=== PATIENT | female | born 2005 | race Caucasian/White ===

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

== ENCOUNTER 2025-07-05 17:05 | Emergency (ER) | payer OTHER ==
[~2025-07-05] VITALS: Ht 152.4 cm; Wt 72.5 kg
[2025-07-05] MEDS ORDERED: CIPROFLOXACIN HCL/DEXAMETH 7.5 ML HOME.PACK OTIC ONE ×2 (19:00→19:15)
[2025-07-05 19:14] VITALS: BP 107/62
== END 2025-07-05 19:16 | disposition home or self-care (01) ==
LOC: ED 17:05
DX: H60.92 Unspecified otitis externa, left ear (principal); J06.9 Acute upper respiratory infection, unspecified; Z87.891 Personal history of nicotine dependence
CPT/HCPCS: 87651; 99283

== ENCOUNTER 2025-08-29 01:32 | Emergency (ER) | payer OTHER ==
[~2025-08-29] VITALS: Ht 177.8 cm; Wt 73.0 kg
--- OUTSIDE RECORDS SUMMARY | ~2025-08-29 | XMS | Continuity of Care Document ---
Demographics + + + | Address | [address] | | | [place] [address] | + + + | Preferred Language | Unknown | + + + | Marital Status | Never | + + + | Protestant Affiliation | Unknown | + + + | Race | White | + + + | Ethnic Group | Not or | + + + Author + + + | Author | [facility] | + + + | Organization | [facility] | + + + | Address | [address] | | | [place] [address] | + + + | Phone | | + + + Care Team Providers + + + + | Care Cytologist Name | Role | Phone | + + + + Unavailable | Unavailable | + + + + Unavailable | Unavailable | + + + + Allergies and Intolerances + + + + + + | date | description | facility | reaction | severity | + + + + + + | 2025-07-05 | UNK | [facility] - | (no reaction) | Moderate | | 00:00 | | [facility] | | | | | | [facility] | | | + + + + + + Encounters No information. Functional Status No information. Immunizations No information. Medications No information. Problems + + + + | date | description | facility | + + + + | 2025-07-05 00:00 | Otitis externa | [facility] | | | | [facility] | + + + + | 2025-07-05 00:00 | Upper respiratory tract | [facility] | | | infection | [facility] | + + + + Procedures No information. Results/Labs No information. Social History +--------+ + + | date | description | facility | +--------+ + + Vital Signs + + + +---------+ | date | measurement | value | units | + + + +---------+ | 2025-07-05 00:00 | BMI | 31.2 | kg/m2 | + + + +---------+ | 2025-07-05 00:00 | BP_diastolic | 62 | mmHg | + + + +---------+ | 2025-07-05 00:00 | BP_systolic | 107 | mmHg | + + + +---------+ | 2025-07-05 00:00 | heart_rate | 76 | /min | + + + +---------+ | 2025-07-05 00:00 | height_metric | 152.4 | cm | + + + +---------+ | 2025-07-05 00:00 | height_standard | 60 | in | + + + +---------+ | 2025-07-05 00:00 | o2_saturation | 100 | % | + + + +---------+ | 2025-07-05 00:00 | respiration_rate | 18 | /min | + + + +---------+ | 2025-07-05 00:00 | | 97.7 | F | | | temperature_standar | | | | | d | | | + + + +---------+ | 2025-07-05 00:00 | weight_metric | 72.501 | kg | + + + +---------+ | 2025-07-05 00:00 | weight_standard | 159.837 | lb | + + + +---------+"
[2025-08-29 01:56] LABS: BASOPHILS 0.5 % (0.1-1.2); EOSINOPHILS 1.3 % (0.7-5.8); LYMPHOCYTES 33.1 % (19.3-51.7); MCH 29.7 PG (25.6-32.2); MCHC 34.0 g/dL (32.2-35.5); MCV 87.3 fL (79.4-94.8); MONOCYTES 9.0 % (4.7-12.5); NEUTROPHILS 55.8 % (34.0-71.1); RBC 4.34 M/uL (3.93-5.22)
[2025-08-29 01:57] LABS: BLOOD/HGB, URINE LARGE (Negative); KETONE, URINE NEGATIVE (Negative); LEUK ESTERASE, URINE NEGATIVE (negative); NITRITE, URINE NEGATIVE (negative)
[2025-08-29 02:02] LABS: EPITHELIAL CELLS, URINE SQUAMOUS 1+ /lpf (0-1+)
[2025-08-29 02:03] LABS: BACTERIA, URINE RARE /hpf (negative); CRYSTALS, URINE AMORPHOUS PHOSPH 3+ (0-1+)
[2025-08-29 02:04] LABS: CASTS, URINE NONE SEEN \\lpf; REFLEX CULTURE, URINE No (No)
[2025-08-29 02:26] LABS: ABO A; RH POSITIVE
[2025-08-29 02:35] LABS: ALT (SGPT) 19.0 U/L (14-59); AST (SGOT) 11.0 U/L (15-37); GLOMERULAR FILTRATION RATE,EST 150.0 mL/min (>60); PROTEIN, TOTAL 7.5 g/dL (6.4-8.2); UREA NITROGEN 10.0 mg/dL (7-18)
[2025-08-29] MEDS ORDERED: CEPHALEXIN500 M1 PO (02:49)
[2025-08-29] MEDS ORDERED: CEPHALEXIN MONOHYDRATE 500 MG HOME.PACK PO ONE (03:00)
[2025-08-29 03:12] VITALS: BP 112/64
== END 2025-08-29 03:05 | disposition home or self-care (01) ==
LOC: ED 01:32
PROVIDERS: Family Medicine
DX: O20.9 Hemorrhage in early pregnancy, unspecified (principal); Z3A.10 10 weeks gestation of pregnancy
CPT/HCPCS: 36415; 76801; 80053; 81001; 84702; 85025; 86900; 86901; 99284-25; A9270